=== PATIENT | female | born 1970 | race Caucasian/White ===

== ENCOUNTER 2016-12-04 23:22 | Inpatient (IN) | payer OTHER ==
[~2016-12-04] VITALS: Ht 162.6 cm; Wt 125.5 kg
[~2016-12-04 23:22] MED LIST: AMO500 PO; ATEN50TA PO; BUS5 PO; CIPR500T4 PO; IBUP-1542 PO; LEVO25TA59 PO; METF500T4 PO; NITR-58 PO; UDROBDM PO
[2016-12-04 23:27] VITALS: Ht 162.6 cm; Wt 125.5 kg
[2016-12-04] MEDS ORDERED: SOD CHLORIDE 0.9% 1,000 ML IV STA (23:49)
[2016-12-05] MEDS ORDERED: SOD CHLORIDE 0.9% 1,000 ML IV ONE
[2016-12-05 00:17] LABS: ADD SCAN DIFF NO
[2016-12-05] MEDS ORDERED: DICLOFENAC SODIUM 37.5 MG/ML VIAL IV STA (00:19)
[2016-12-05 00:20] LABS: BASOPHIL # 0.1 10^3/ul (0.0-0.1); BASOPHILS % 0.5 % (0.0-2.0); EOSINOPHILS # 0.4 10^3/ul (0.0-0.5); EOSINOPHILS % 1.9 % (0.0-7.0); HEMATOCRIT 41.2 % (37.0-47.0); HEMOGLOBIN 13.9 g/dl (12.0-16.0); LYMPHOCYTES # 3.4 10^3/ul (0.8-2.9); LYMPHOCYTES % 17.6 % (15.0-51.0); MEAN CORPUSCULAR HEMOGLOBIN 31.2 pg (29.0-33.0); MEAN CORPUSCULAR HGB CONC 33.7 g/dl (32.0-37.0); MEAN CORPUSCULAR VOLUME 92.4 fl (82.0-101.0); MEAN PLATELET VOLUME 9.8 fl (7.4-10.4); MONOCYTE # 1.3 10^3/ul (0.3-0.9); MONOCYTES % 6.9 % (0.0-11.0); NEUTROPHIL # 14.1 10^3/ul (1.6-7.5); NEUTROPHILS % 72.5 % (39.0-77.0); PLATELET COUNT 400 10^3/UL (140-415); RED BLOOD COUNT 4.46 10^6/ul (4.20-5.40); RED CELL DISTRIBUTION WIDTH 12.7 % (11.5-14.5); WHITE BLOOD COUNT 19.5 10^3/ul (4.8-10.8)
[2016-12-05 00:28] LABS: ADD UMIC YES; URINE BILIRUBIN (Dip) NEGATIVE (NEGATIVE); URINE BLOOD (Dip) 1+ (NEGATIVE); URINE COLOR YELLOW (YELLOW); URINE KETONES (Dip) 15 (NEGATIVE); URINE LEUKOCYTE ESTERASE (Dip) NEGATIVE (NEGATIVE); URINE NITRITE (Dip) NEGATIVE (NEGATIVE); URINE TOTAL PROTEIN (Dip) 2+ (NEGATIVE); URINE UROBILINOGEN (Dip) 0.2 E.U./dL (0.1-1.0)
[2016-12-05 00:29] LABS: ALBUMIN 4.4 g/dl (3.3-4.9); POTASSIUM 4.8 mmol/L (3.5-5.1)
[2016-12-05] MEDS ORDERED: HYDROCODONE/APAP (5/325) TAB PO ONE (00:30)
[2016-12-05 00:31] LABS: BILIRUBIN,INDIRECT 0.2 mg/dl (0-1.1); BILIRUBIN,TOTAL 0.2 mg/dl (0.2-1.3); CREATININE 0.68 mg/dl (0.44-1.00)
[2016-12-05 00:32] LABS: ALBUMIN/GLOBULIN RATIO 1.07; CALCIUM 9.5 mg/dl (8.4-10.2); TOTAL PROTEIN 8.5 g/dl (6.1-8.1)
[2016-12-05 00:52] LABS: BACTERIA,URINE FEW; SQUAMOUS EPITHELIAL CELL,UR FEW; URINE RBCS 0-2 /HPF (0)
[2016-12-05] MEDS ORDERED: CEFTRIAXONE 1 GM/50 ML (PMX) 50 ML IVPB ONE (01:30)
[2016-12-05] MEDS ORDERED: VANCOMYCIN 1 GM (PMX) 250 ML IVPB SCH (01:30)
[2016-12-05] MEDS ORDERED: morphine 4 MG/ML VIAL IV STA (02:03)
--- NOTE | 2016-12-05 03:20 | HP ---
Date/Time of Note Date/Time of Note DATE: 12/05/16 TIME: 03:06 Assessment/Plan VTE Prophylaxis VTE Prophylaxis Intervention: other (Lovenox) Assessment/Plan Assessment/Plan 1) Cutaneous Abscess, Multiple, on trunk and extremities with Failure of Outpatient Treatment - Admit to Med Surg - IV Antibiotics, empiric, broad coverage - Pain Control - CBC in AM 2) Hyperglycemia due to type 2 diabetes mellitus uncontrolled - HgbA1c - Diabetes Education - CONSULT: [employer] Apprentice - AccuCheks and Sliding Insulin Scale 3) Hypertension - Resume Home Medications - Monitor 4) Secondary Hypothyroidism - TSH 5) Morbid Obesity - Constant Carb Diet - Work on getting DM under Control - Ensure that Thyroid Hormone is balanced - Treat Boils so that patient feels better - Education and plan for increased daily activity when she is able HPI/ROS Admit Date/Time Admit Date/Time 12/05/16 0307 Hx of Present Illness hief Complaint high blood sugar, also c/o boils, blurry vision HPI 46-year-old female presents with complaint of high blod sugar and multiple painful sores, unsuccessfully treated as an outpatient. Sent here by her PCP because her sugars were found to be high on clinic labs. She has had chills, but no fever. No significant cough or body aches, but generally feeling tired and run-down. Intermittent blurry vision, burning sensation in her feet. Just found out she is a diabetic about a week ago. She denies dysuria, urinary frequency, nausea, vomiting or diarrhea, but her appetite is decreased. No significant abdominal pain, chest pain, shortness of breath. She has been treated with Macrobid,alone for the last few days without relief. ER Course per ER Physician: She was given vancomycin and Rocephin emergency room. No signs of systemic inflammatory response system currently. She was given normal saline for hyperglycemia. She was given morphine and Dilaudid for her pain issue that pain from abscess sites. Early abscess sites on her buttock began bleeding but there was no purulent discharge. She'll be admitted to medical surgical floor for IV antibiotics as well as management of her diabetes and possibly a new diabetic regimen to control her sugars to allow for wound healing. I spoke with Dr. Hewitt will be admitting the patient. ROS General: Admits: Chills, Poor Appetite Denies: Fever, Abnormal Weight Loss, Generalized Body Aches Eyes: Admits: Blurry Vision, Denies: Double Vision, Yellow Eyes HENT: Admits: Denies: Ear Pain/Pressure, Runny/Stuffy Nose, Sore Throat Cardiovascular: Admits: Denies: Chest Pain, Palpitations, Leg Swelling Pulmonary: Admits: Denies: Cough, Wheeze, Shortness of Breath Gastrointestinal: Admits: Denies: Abdominal Pain, Nausea, Vomiting, Diarrhea, Blood in Stool, Black-Colored Stool Urogenital: Admits: Denies: Burning with Urination, Urinary Frequency, Blood in Urine Musculoskeletal: Admits: Denies: Joint Pain, Joint Swelling, Muscle Pain Neurological: Admits: Denies: Headache, Dizziness, Numbness, Tingling, Shooting Pains Integumentary: Admits: Multiple sores Denies: Itch PMH/Family/Social Past Medical History HTN; THRYOID CANCER; Secondary HYPOTHYROIDISN;, DM Type 2; MORBID OBESITY; SLEEP APNEA Past Surgical History THYROIDECTOMY due to Thyroid Cancer; Section x 2 Social History Alcohol Use: sober Smoking Status: Current every day smoker Drug Use: other (Previous daily Methamphetamine user) Exam/Review of Systems Vital Signs Vitals Vital Signs Date Time Temp Pulse Resp B/P Pulse Ox O2 Delivery O2 Flow Rate FiO2 12/05/16 02:47 100 16 109/73 96 Room Air 12/04/16 23:27 99.4 Exam Exam General: Morbidly obese 46 year old female, alert, drowsy, since just received pain medication in the ED, still in some pain. Appears uncomfortable but non- toxic Eyes: Sclera White, EOMI HENT: Normocephalic/Atraumatic, External Ears/Nose Normal, Moist Mucus Membranes Neck: Supple, Trachea Midline Cardiovascular: Normal Rate, Normal Rhythm, Normal S1 and S2, No Murmur, No Extra Sounds Pulmonary: Clear but somewhat decreased airflow throughout, Normal Respiratory Effort, No Rales, Rhonchi or Wheezes Gastrointestinal: Normoactive Bowel Sounds, Soft, Non-Tender/Non-Distended, Morbidly obese, so difficult to palpate internal organs. No obvious organomegaly or pulsatile mass.NUrogenital: Deferred Musculoskeletal: Normal Muscle Bulk and Tone Neurological: CN II - XII Grossly Intact, Non-Focal, Speech Normal Integumentary: Normal Moisture and Temperature, Good Turgor, No Jaundice. Patient has multiple areas of cellulitis an indurated abscess on buttock, lower abdomen, left lateral chest wall. No other lesions have any fluctuance. Wheals are all approximately 3-4 cm with positive warmth and erythema. There very tender to palpation. Lymphatic: No Cervical Lymphadenopathy Psychiatric: Appropriate Mood and Affect, Good Eye Contact Labs Result Diagram: 12/04/16 0000 12/04/16 0000 Medications Medications Home Meds Active Scripts Ciprofloxacin Hcl* (Ciprofloxacin Hcl*) 500 Mg Tablet, 500 MG PO BID for 5 Days , TAB Prov:LINDALEONARDNEGIN 02/26/16 Guaifenesin-Dextromethorphan* (Robitussin* DM) 100MG/10MG/5ML Syrup, 5 ML PO Q6H Y for COUGH, #120 ML 0 Refills Prov:KATHY COOK PA-C 12/28/15 Amoxicillin* (Amoxicillin*) 500 Mg Cap, 500 MG PO TID, #21 CAP 0 Refills Prov:KATHY COOK PA-C 12/28/15 Ibuprofen* (Motrin*) 600 Mg Tab, 600 MG PO Q8, #30 TAB 0 Refills Prov:KATHY COOK PA-C 12/28/15 Nitrofurantoin Monohyd Macrocr* (Macrobid*) 100 Mg Capsr, 100 MG PO BID, #14 CAP 0 Refills Prov:KATHY COOK PA-C 12/28/15 Reported Medications Levothyroxine Sodium* (Synthroid*) 25 Mcg Tablet, 25 MCG PO DAILY, TAB 02/03/15 Metformin* (Glucophage*) 500 Mg Tab, 1000 MG PO BID, TAB 02/03/15 Buspirone Hcl* (Buspar*) 5 Mg Tab, 5 MG PO BID, TAB 02/03/15 Atenolol* (Atenolol*) 50 Mg Tablet, 50 MG PO DAILY, TAB 02/03/15 Procedures Procedures Laboratory Tests Test 12/04/16 00:00 12/04/16 23:34 12/05/16 00:01 12/05/16 07:22 White Blood Count 19.510^3/ul Red Blood Count 4.4610^6/ul Hemoglobin 13.9g/dl Hematocrit 41.2% Mean Corpuscular Volume 92.4fl Mean Corpuscular Hemoglobin 31.2pg Mean Corpuscular Hemoglobin Concent 33.7g/dl Red Cell Distribution Width 12.7% Platelet Count 96208^3/UL Mean Platelet Volume 9.8fl Neutrophils % 72.5% Lymphocytes % 17.6% Monocytes % 6.9% Eosinophils % 1.9% Basophils % 0.5% Nucleated Red Blood Cells % 0.0/100WBC Neutrophils # 14.110^3/ul Lymphocytes # 3.410^3/ul Monocytes # 1.310^3/ul Eosinophils # 0.410^3/ul Basophils # 0.110^3/ul Nucleated Red Blood Cells # 0.010^3/ul Urine Color YELLOW Urine Clarity CLEAR Urine pH 6.0 Urine Specific [place] 1.025 Urine Ketones 15 Urine Nitrite NEGATIVE Urine Bilirubin NEGATIVE Urine Urobilinogen 0.2 E.U./dL Urine Leukocyte Esterase NEGATIVE Urine Microscopic RBC 0-2/HPF Urine Microscopic WBC 2-5/HPF Urine Squamous Epithelial Cells FEW Urine Bacteria FEW Urine Yeast FEW Urine Hemoglobin 1+ Urine Glucose 0.5%% Urine Total Protein 2+ Sodium Level 132mmol/L Potassium Level 4.8mmol/L Chloride Level 90mmol/L Carbon Dioxide Level 31mmol/L Anion Gap 16 Blood Urea Nitrogen 13mg/dl Creatinine 0.68mg/dl Glucose Level 383mg/dl Calcium Level 9.5mg/dl Total Bilirubin 0.2mg/dl Direct Bilirubin 0.00mg/dl Indirect Bilirubin 0.2mg/dl Aspartate Amino Transf (AST/SGOT) 89IU/L Alanine Aminotransferase (ALT/SGPT) 106IU/L Alkaline Phosphatase 238IU/L Total Protein 8.5g/dl Albumin 4.4g/dl Globulin 4.10g/dl Albumin/Globulin Ratio 1.07 Lipase 226U/L Bedside Glucose 355mg/dL 297mg/dL Thyroid Stimulating Hormone (TSH) 61.300MIU/L BRUCE HEWITT Dec 05, 2016 03:16 BRUCE HEWITT DO Dec 05, 2016 03:16
[2016-12-05] MEDS ORDERED: VANCOMYCIN IV PER PHARMACY XX SCH (03:30)
[2016-12-05] MEDS ORDERED: GLUCOSE GEL 15 GRAM TUBE BUCCAL PRN (03:30)
[2016-12-05] MEDS ORDERED: HYDROCODONE/APAP (5/325) TAB PO PRN ×3 (03:30→10:30)
[2016-12-05] MEDS ORDERED: NACL 0.9% 3 ML SYG IV SCH (03:30)
[2016-12-05] MEDS ORDERED: DEXTROSE 50% 50 ML SYRINGE IV PRN ×2 (03:30)
[2016-12-05] MEDS ORDERED: ACETAMINOPHEN 325 MG TAB PO PRN (03:30)
[2016-12-05] MEDS ORDERED: METOCLOPRAMIDE 10 MG INJ IV PRN (03:30)
[2016-12-05] MEDS ORDERED: GLUCAGON 1 MG INJ IM PRN (03:30)
[2016-12-05] MEDS ORDERED: ONDANSETRON 4 MG TAB PO PRN (03:30)
[2016-12-05] MEDS ORDERED: GLUCOSE GEL 15 GRAM TUBE PO PRN ×2 (03:30)
[2016-12-05] MEDS ORDERED: LEVOTHYROXINE 100 MCG TAB PO SCH (05:30)
[2016-12-05] MEDS ORDERED: morphine 10 MG INJ IV ONE (07:00)
--- NOTE | 2016-12-05 07:40 | ERA ---
ER Documentation Chief Complaint Date/Time DATE: 12/05/16 TIME: 07:34 Chief Complaint high blood sugar, also c/o boils, blurry vision HPI 46-year-old female minutes of hyperglycemia and multiple red lesions on her body. She has mild blurry vision currently with hyperglycemia. She knew she had diabetes and her sugars were formally well controlled with metformin alone. She had a sugar 500 at home and her primary care doctor told her to come the emergency room. She's had chills with no fevers and has pain on the lesion sites only. She denies dysuria, significant abdominal pain, chest pain, shortness of breath. She has been treated with Macrobid as normal for the last few days without relief. ROS All systems reviewed and are negative except as per history of present illness. Medications Home Meds Active Scripts Ciprofloxacin Hcl* (Ciprofloxacin Hcl*) 500 Mg Tablet, 500 MG PO BID for 5 Days , TAB Prov:NEGIN MCKEON DO 02/26/16 Guaifenesin-Dextromethorphan* (Robitussin* DM) 100MG/10MG/5ML Syrup, 5 ML PO Q6H Y for COUGH, #120 ML 0 Refills Prov:KATHY COOK PA-C 12/28/15 Amoxicillin* (Amoxicillin*) 500 Mg Cap, 500 MG PO TID, #21 CAP 0 Refills Prov:KATHY COOK PA-C 12/28/15 Ibuprofen* (Motrin*) 600 Mg Tab, 600 MG PO Q8, #30 TAB 0 Refills Prov:KATHY COOK PA-C 12/28/15 Nitrofurantoin Monohyd Macrocr* (Macrobid*) 100 Mg Capsr, 100 MG PO BID, #14 CAP 0 Refills Prov:KATHY COOK PA-C 12/28/15 Reported Medications Levothyroxine Sodium* (Synthroid*) 25 Mcg Tablet, 25 MCG PO DAILY, TAB 02/03/15 Metformin* (Glucophage*) 500 Mg Tab, 1000 MG PO BID, TAB 02/03/15 Buspirone Hcl* (Buspar*) 5 Mg Tab, 5 MG PO BID, TAB 02/03/15 Atenolol* (Atenolol*) 50 Mg Tablet, 50 MG PO DAILY, TAB 02/03/15 Allergies Allergies: Coded Allergies: No Known Allergy (Verified , 12/04/16) PMhx/Soc History of Surgery: Yes (THYROIDECTOMY, 2x ) Anesthesia Reaction: No Hx Neurological Disorder: No Hx Respiratory Disorders: No Hx Cardiac Disorders: Yes (c/o cp, HTN) Hx Psychiatric Problems: Yes (DEPRESSION) Hx Miscellaneous Medical Probl: Yes (THRYOID CANCER, DM, OBESITY, SLEEP APNEA) Hx Alcohol Use: Yes (previous daily ) Hx Substance Use: Yes (previous METH DAILY) Hx Tobacco Use: Yes Smoking Status: Current every day smoker Physical Exam Vitals Vital Signs Date Time Temp Pulse Resp B/P Pulse Ox O2 Delivery O2 Flow Rate FiO2 12/05/16 07:25 89 20 138/80 99 Room Air 12/05/16 06:05 90 18 149/95 99 Room Air 12/05/16 04:32 94 18 136/83 98 12/05/16 02:47 100 16 109/73 96 Room Air 12/05/16 00:14 98 16 151/87 99 Room Air 12/04/16 23:27 99.4 82 20 169/99 98 Physical Exam Const: [] No distress Head: Atraumatic Eyes: Normal Conjunctiva ENT: Normal External Ears, Nose and Mouth. Neck: Full range of motion..~ No meningismus. Resp: Clear to auscultation bilaterally Cardio: Regular rate and rhythm, no murmurs Abd: Soft, non tender, non distended. Normal bowel sounds Skin: Patient has multiple areas of cellulitis an indurated abscess on buttock, lower abdomen, left lateral chest wall. No other lesions have any fluctuance. Wheezes are all approximately 3-4 cm with positive calor and erythema. There very tender to palpation. Back: No midline or flank tenderness Ext: No cyanosis, or edema Neur: Awake and alert 3, no focal deficits Psych: Normal Mood and Affect Result Diagram: 12/04/16 0000 12/04/16 0000 Results 24 hrs Laboratory Tests Test 12/04/16 00:00 12/04/16 23:34 12/05/16 00:01 12/05/16 07:22 White Blood Count 19.510^3/ul Red Blood Count 4.4610^6/ul Hemoglobin 13.9g/dl Hematocrit 41.2% Mean Corpuscular Volume 92.4fl Mean Corpuscular Hemoglobin 31.2pg Mean Corpuscular Hemoglobin Concent 33.7g/dl Red Cell Distribution Width 12.7% Platelet Count 04328^3/UL Mean Platelet Volume 9.8fl Neutrophils % 72.5% Lymphocytes % 17.6% Monocytes % 6.9% Eosinophils % 1.9% Basophils % 0.5% Nucleated Red Blood Cells % 0.0/100WBC Neutrophils # 14.110^3/ul Lymphocytes # 3.410^3/ul Monocytes # 1.310^3/ul Eosinophils # 0.410^3/ul Basophils # 0.110^3/ul Nucleated Red Blood Cells # 0.010^3/ul Urine Color YELLOW Urine Clarity CLEAR Urine pH 6.0 Urine Specific [place] 1.025 Urine Ketones 15 Urine Nitrite NEGATIVE Urine Bilirubin NEGATIVE Urine Urobilinogen 0.2 E.U./dL Urine Leukocyte Esterase NEGATIVE Urine Microscopic RBC 0-2/HPF Urine Microscopic WBC 2-5/HPF Urine Squamous Epithelial Cells FEW Urine Bacteria FEW Urine Yeast FEW Urine Hemoglobin 1+ Urine Glucose 0.5%% Urine Total Protein 2+ Sodium Level 132mmol/L Potassium Level 4.8mmol/L Chloride Level 90mmol/L Carbon Dioxide Level 31mmol/L Anion Gap 16 Blood Urea Nitrogen 13mg/dl Creatinine 0.68mg/dl Glucose Level 383mg/dl Calcium Level 9.5mg/dl Total Bilirubin 0.2mg/dl Direct Bilirubin 0.00mg/dl Indirect Bilirubin 0.2mg/dl Aspartate Amino Transf (AST/SGOT) 89IU/L Alanine Aminotransferase (ALT/SGPT) 106IU/L Alkaline Phosphatase 238IU/L Total Protein 8.5g/dl Albumin 4.4g/dl Globulin 4.10g/dl Albumin/Globulin Ratio 1.07 Lipase 226U/L Bedside Glucose 355mg/dL 297mg/dL Thyroid Stimulating Hormone (TSH) 61.300MIU/L Current Medications Medications (Trade) Dose Ordered Sig/Omar Route PRN Reason Start Time Stop Time Status Last Admin Dose Admin Sodium Chloride 1,000 ml @ 1,000 mls/hr Q1H STAT IV 12/04/16 23:49 12/05/16 00:48 DC 12/05/16 00:28 Sodium Chloride (NS) 1,000 ml @ 1,000 mls/hr Q1H ONCE IV 12/05/16 00:00 12/05/16 00:59 DC 12/05/16 00:28 Diclofenac Sodium (Dyloject) 37.5 mg ONCE STAT IV 12/05/16 00:19 12/05/16 00:21 DC 12/05/16 00:28 Acetaminophen/ Hydrocodone Bitart 1 tab 1 tab ONCE ONCE PO 12/05/16 00:30 12/05/16 00:31 DC 12/05/16 00:29 Vancomycin HCl 250 ml @ 125 mls/hr ONCE IVPB 12/05/16 01:30 12/05/16 03:29 DC 12/05/16 02:47 Ceftriaxone Sodium (Rocephin) 50 ml @ 100 mls/hr ONCE ONCE IVPB 12/05/16 01:30 12/05/16 01:59 DC 12/05/16 01:57 Morphine Sulfate (morphine) 4 mg ONCE STAT IV 12/05/16 02:03 12/05/16 02:08 DC 12/05/16 02:12 IV Flush (NS 3 ml) 3 ml PER PROTOCOL IV 12/05/16 03:30 Ondansetron HCl (Zofran Tab) 4 mg Q6H PRN PO NAUSEA AND/OR VOMITING 12/05/16 03:30 Metoclopramide HCl (Reglan) 10 mg Q6H PRN IV NAUSEA AND/OR VOMITING 12/05/16 03:30 Acetaminophen (Tylenol Tab) 650 mg Q6H PRN PO PAIN LEVEL 1-3 OR FEVER 12/05/16 03:30 Acetaminophen/ Hydrocodone Bitart ([place] (5/325)) 1 tab Q6H PRN PO MODERATE PAIN LEVEL 4-6 12/05/16 03:30 Acetaminophen/ Hydrocodone Bitart ([place] (5/325)) 2 tab Q6H PRN PO SEVERE PAIN LEVEL 7-10 12/05/16 03:30 Famotidine (Pepcid) 20 mg Q12 PO 12/05/16 09:00 Enoxaparin Sodium (Lovenox) 40 mg DAILY SC 12/05/16 09:00 Insulin Aspart (Novolog Insulin Pen) NOVOLOG *MILD* ALGORITHM WITH MEALS BEDTIME SC 12/05/16 08:00 Insulin Glargine (Lantus) 10 unit DAILY@08 SC 12/05/16 08:00 Miscellaneous Information (* Miscellaneous Pharmacy Order) HYPOGLYCEMIA PROTOCOL w... ONCE ONCE XX 12/05/16 03:30 12/05/16 03:34 DC Miscellaneous Information (* Miscellaneous Pharmacy Order) Discontinue Glyburide, Glipizide,... ONCE ONCE XX 12/05/16 03:30 12/05/16 03:34 DC Miscellaneous Information (* Miscellaneous Pharmacy Order) Discontinue all previ... ONCE ONCE XX 12/05/16 03:30 12/05/16 03:34 DC Atenolol (Tenormin) 50 mg DAILY PO 12/05/16 09:00 Buspirone HCl (Buspar) 5 mg BID PO 12/05/16 09:00 Levothyroxine Sodium (Synthroid) 25 mcg DAILY PO 12/05/16 09:00 12/05/16 09:00 DC Metformin HCl (Glucophage) 1,000 mg WITH BREAKFAST DINNE PO 12/05/16 08:00 Vancomycin HCl VANCOMYCIN PER PHARMACY PER PROTOCOL XX 12/05/16 03:30 Ceftriaxone Sodium (Rocephin) 50 ml @ 100 mls/hr DAILY IVPB 12/05/16 09:00 Diagnostic Test (Pha) (Accu-Chek) 1 ea 02 XX 12/06/16 02:00 Miscellaneous Information 1 ea NOTE XX 12/05/16 03:30 Glucose (Glutose) 15 gm Q15M PRN PO DECREASED GLUCOSE 12/05/16 03:30 Glucose (Glutose) 22.5 gm Q15M PRN PO DECREASED GLUCOSE 12/05/16 03:30 Dextrose (D50w Syringe) 25 ml Q15M PRN IV DECREASED GLUCOSE 12/05/16 03:30 Dextrose (D50w Syringe) 50 ml Q15M PRN IV DECREASED GLUCOSE 12/05/16 03:30 Glucagon (Glucagen) 1 mg Q15M PRN IM DECREASED GLUCOSE 12/05/16 03:30 Glucose 15 gm 15 gm Q15M PRN BUCCAL DECREASED GLUCOSE 12/05/16 03:30 Vancomycin HCl/ Sodium Chloride (Vancocin/NS) 500 ml @ 125 mls/hr Q12H IVPB 12/05/16 09:00 Levothyroxine Sodium (Synthroid) 100 mcg DAILY@0530 PO 12/05/16 05:30 Morphine Sulfate (morphine) 6 mg ONCE ONCE IV 12/05/16 07:00 12/05/16 07:01 DC Procedures/MDM Patient's fracture hyperglycemia with metformin is likely secondary to her section from multiple nonfluctuant abscesses. She has failed outpatient treatment. She was given vancomycin and Rocephin emergency room. No signs of systemic inflammatory response system currently. She was given normal saline for hyperglycemia. She was given morphine and Dilaudid for her pain issue that pain from abscess sites. Early abscess sites on her buttock began bleeding but there was no purulent discharge. She'll be admitted to medical surgical floor for IV antibiotics as well as management of her diabetes and possibly a new diabetic regimen to control her sugars to allow for wound healing. I spoke with Dr. Aquino will be admitting the patient. Departure Diagnosis: Primary Impression: Cutaneous abscess Additional Impressions: Failure of outpatient treatment Hyperglycemia due to type 2 diabetes mellitus Condition: NEHAL Li DO Dec 05, 2016 07:40
[2016-12-05] MEDS ORDERED: INSULIN GLARGINE [LANtus] 3 ML PEN SC SCH ×2 (08:00→21:00)
[2016-12-05] MEDS ORDERED: FAMOTIDINE 20 MG TAB PO SCH (09:00)
[2016-12-05] MEDS ORDERED: ATENOLOL 50 MG TAB PO SCH (09:00)
[2016-12-05] MEDS ORDERED: ENOXAPARIN 40 MG/0.4 ML SYG SC SCH (09:00)
[2016-12-05] MEDS ORDERED: BUSPIRONE 5 MG TAB PO SCH (09:00)
[2016-12-05] MEDS ORDERED: CEFTRIAXONE 1 GM/50 ML (PMX) 50 ML IVPB SCH (09:00)
[2016-12-05] MEDS ORDERED: VANCOMYCIN 1.75 GM in NS 500 ML IVPB SCH (09:00)
[2016-12-05] MEDS ORDERED: LEVOTHYROXINE 25 MCG TAB PO SCH (09:00)
[2016-12-05] MEDS: metFORMIN 500 MG TAB PO SCH ×2 (09:15→18:19)
[2016-12-05 10:00] VITALS: BP 135/75; PULSE 78; RESP 18
[2016-12-05] MEDS: INSULIN ASPART [NOVOLOG] 3 ML PEN SC SCH ×2 (10:18→12:38)
[2016-12-05 10:27] LABS: HAAIG REFLEX REFLEX FILED
[2016-12-05] MEDS: morphine 2 MG INJ IV PRN ×2 (10:45→14:22)
[2016-12-05 12:06] LABS: HEPATITIS B CORE ANTIBODY NEGATIVE (NEGATIVE)
--- NOTE | 2016-12-05 16:40 | PN ---
Date/Time of Note Date/Time of Note DATE: 12/05/16 TIME: 16:37 Assessment/Plan VTE Prophylaxis VTE Prophylaxis Intervention: LMWH Assessment/Plan Chief Complaint/Hosp Course Subjective: Painful boils. No dyspnea. Objective: Vital signs stable Physical examination No pallor JVD Regular Clear Bowel sounds positive, nontender, nondistended, no RR G Assessment and plan 1. Hyperosmolar hyperglycemic state. No evidence of DKA. Stable cont insulin. Insulin training 2. Cellulitis, possible multiple small abscess. Try antibiotics and diabetic care. May need surgical eval. 3. Hypothyroidism/ho thyroid Ca. Adjust therapy 4. History of substance abuse- meth 5. Tobacco abuse; patch prn 6. Possible sleep apnea Problems: Exam/Review of Systems Vital Signs Vitals Vital Signs Date Time Temp Pulse Resp B/P Pulse Ox O2 Delivery O2 Flow Rate FiO2 12/05/16 07:25 89 20 138/80 99 Room Air 12/04/16 23:27 99.4 Results Result Diagram: 12/04/16 0000 12/04/16 0000 Results 24 hrs Laboratory Tests Test 12/04/16 23:34 12/05/16 00:01 12/05/16 07:22 12/05/16 08:46 Bedside Glucose 355 H 297 H 334 H Thyroid Stimulating Hormone (TSH) 61.300 H Test 12/05/16 10:16 12/05/16 12:27 Hepatitis B Surface Antigen NEGATIVE Hepatitis B Core Total Antibody NEGATIVE Hepatitis C Antibody NEGATIVE HIV (1&2) Antibody NEGATIVE Bedside Glucose 378 H Medications Medications Current Medications Ondansetron HCl (Zofran Tab) 4 mg Q6H PRN PO NAUSEA AND/OR VOMITING; Start at 03:30 Metoclopramide HCl (Reglan) 10 mg Q6H PRN IV NAUSEA AND/OR VOMITING; Start at 03:30 Acetaminophen (Tylenol Tab) 650 mg Q6H PRN PO PAIN LEVEL 1-3 OR FEVER; Start at 03:30 Acetaminophen/ Hydrocodone Bitart ([place] (5/325)) 1 tab Q6H PRN PO MODERATE PAIN LEVEL 4-6; Start 12/05/16 at 03:30 Acetaminophen/ Hydrocodone Bitart ([place] (5/325)) 2 tab Q6H PRN PO SEVERE PAIN LEVEL 7-10; Start 12/05/16 at 03:30 Famotidine (Pepcid) 20 mg Q12 PO Last administered on 12/05/16 09:56; Admin Dose 20 MG; Start 12/05/16 at 09:00 Enoxaparin Sodium (Lovenox) 40 mg DAILY SC Last administered on 12/05/16 10:04 ; Admin Dose 40 MG; Start 12/05/16 at 09:00 Insulin Glargine (Lantus) 10 unit DAILY@08 SC Last administered on 12/05/16 10 :15; Admin Dose 10 UNIT; Start 12/05/16 at 08:00 Atenolol (Tenormin) 50 mg DAILY PO Last administered on 12/05/16 09:56; Admin Dose 50 MG; Start 12/05/16 at 09:00 Buspirone HCl 5 mg 5 mg BID PO ; Start 12/05/16 at 09:00 Ceftriaxone Sodium (Rocephin) 50 ml @ 100 mls/hr DAILY IVPB Last administered on 12/05/16 09:56; Admin Dose 100 MLS/HR; Start 12/05/16 at 09:00 Diagnostic Test (Pha) (Accu-Chek) 1 ea 02 XX ; Start 12/06/16 at 02:00 Miscellaneous Information 1 ea NOTE XX ; Start 12/05/16 at 03:30 Glucose (Glutose) 15 gm Q15M PRN PO DECREASED GLUCOSE; Start 12/05/16 at 03:30 Glucose (Glutose) 22.5 gm Q15M PRN PO DECREASED GLUCOSE; Start 12/05/16 at 03: 30 Dextrose (D50w Syringe) 25 ml Q15M PRN IV DECREASED GLUCOSE; Start 12/05/16 at 03:30 Dextrose (D50w Syringe) 50 ml Q15M PRN IV DECREASED GLUCOSE; Start 12/05/16 at 03:30 Glucagon (Glucagen) 1 mg Q15M PRN IM DECREASED GLUCOSE; Start 12/05/16 at 03:30 Glucose 15 gm 15 gm Q15M PRN BUCCAL DECREASED GLUCOSE; Start 12/05/16 at 03:30 Vancomycin HCl/ Sodium Chloride (Vancocin/NS) 500 ml @ 125 mls/hr Q12H IVPB Last administered on 12/05/16 12:13; Admin Dose 125 MLS/HR; Start 12/05/16 at 09:00 Levothyroxine Sodium (Synthroid) 100 mcg DAILY@0530 PO Last administered on 12:10; Admin Dose 100 MCG; Start 12/05/16 at 05:30 Morphine Sulfate (morphine) 2 mg Q3H PRN IV PAIN LEVEL 6-10 Last administered on 12/05/16 14:22; Admin Dose 2 MG; Start 12/05/16 at 10:30 Acetaminophen/ Hydrocodone Bitart ([place] (5/325)) 1 tab Q4H PRN PO PAIN LEVEL 1 -5; Start 12/05/16 at 10:30 LORENA MORELAND MD Dec 05, 2016 16:40
[2016-12-05] MEDS ORDERED: SOD CHLORIDE 0.9% 1,000 ML IV SCH (17:00)
[2016-12-05] MEDS ORDERED: morphine 2 MG INJ IV PRN (17:00)
[2016-12-05] MEDS ORDERED: HYDROCODONE/APAP (10/325) TAB PO PRN (17:00)
[2016-12-05] MEDS ORDERED: INSULIN ASPART [NOVOLOG] 3 ML PEN SC SCH ×2 (17:25→17:55)
[2016-12-06] MEDS ORDERED: ACCU-CHEK XX SCH (02:00)
[2016-12-06] MEDS ORDERED: ACCUCHECK AT 2AM (Patients on SS coverage) XX SCH (02:00)
== END 2016-12-05 20:10 | disposition left against medical advice (07) | DRG 602 ==
LOC: E/R 23:22 → MS1 12-05 03:07
PROVIDERS: ADMIT Family Medicine; ATTEND Family Medicine
DX: L02.219 Cutaneous abscess of trunk, unspecified (principal); E11.00 Type 2 diabetes mellitus with hyperosmolarity without nonketotic hyperglycemic-hyperosmolar coma (NKHHC); L02.419 Cutaneous abscess of limb, unspecified; Z68.42 Body mass index [BMI] 45.0-49.9, adult; E11.65 Type 2 diabetes mellitus with hyperglycemia; I10 Essential (primary) hypertension; E03.8 Other specified hypothyroidism; E66.01 Morbid (severe) obesity due to excess calories; F17.210 Nicotine dependence, cigarettes, uncomplicated; G47.33 Obstructive sleep apnea (adult) (pediatric); Z79.4 Long term (current) use of insulin
CPT/HCPCS: 36415; 80053; 81001; 81003; 82962; 83690; 84443; 85025; 86703; 86704; 86709; 86803; 87040; 87086; 87340; 96374; 96375; J0696; J1650; J1815; J2270; J3370; J7030; J7040

== ENCOUNTER 2016-12-10 14:29 | Outpatient (CLI) | payer OTHER ==
[~2016-12-10] VITALS: Ht 162.6 cm; Wt 124.1 kg
[2016-12-10 14:45] VITALS: BP_SYST 172; BP_SYST 203; BP_DIAS 100; BP_DIAS 108; PULSE 94; RESP 20; Ht 162.6 cm; Wt 124.1 kg
[2016-12-10] MEDS ORDERED: ARIP20TA7 PO (15:18)
[2016-12-10] MEDS ORDERED: SERT50TA PO (15:18)
[2016-12-10] MEDS ORDERED: SERT100T PO (15:18)
[2016-12-10] MEDS ORDERED: LEVO175T6 PO (15:18)
--- NOTE | 2016-12-10 15:40 | PN ---
Date/Time of Note Date/Time of Note DATE: 12/10/16 TIME: 15:30 Outpatient Progress Note Chief Complaint Diabetes/hypertension/diabetic neuropathy/hypothyroidism/depression/ hyperlipidemia/ HPI Diabetes/patient was recently diagnosed diabetes, patient blood sugar was significantly elevated, patient blood sugar was 500, 2 days patient blood sugar is 338, patient is not following any diet, patient states that patient was not given any diet instruction, or any paperwork, No patient has polydipsia and polyuria, and also has impaired vision, on about the sites, Hypertension/no headache or dizziness, patient blood pressure significantly elevated, no local focal weakness, Diabetic neuropathy/patient has bilateral feet numbness, and discomfort, going on for a year, Hypothyroidism/patient has hypothyroidism, patient had a cancer of the thyroid, patient has thyroidectomy, patient on supplement, Depression/patient has history of depression, patient on multiple medication, patient has gained 70 pounds in last 1 year, Hyperlipidemia/no xanthoma, on medication, side effect, Review of Systems Const: No Fever, no chills, no Wt. loss patient has severe fatigue, normal appetite, no diaphoresis. Eyes: No pain, no discharge, no redness, impaired vision in both eyes,, no foreign body. ENT: No pain, no bleeding, no congestion, no sore throat, no dysphagia, no discharge or rhinitis. Lymph: No adenopathy, no tender nodes, no lymphedema. Resp: No SOB, no cough, no sputum, no wheezing, no chest pain. CV: No chest pain, no palpitaions, no JACOBSON, no PND, no edema. GI: Normal appetite, no pain, no nausea, no vomiting, no diarrhea, no blood, no constipation. : No frequency, no urgency, no dysuria, no hematuria, no flank pain, no discharge, no bleeding. Musc: No bone/joint pain, no back pain, no neck pain, no knee pain, no restricted ROM. Skin: No rash, no skin lesions, no erythema, no laceration, no bruising, no pruritus. Neuro: No LINTON, no dizziness, no syncope, no seizure, no focal-weakness. Patient has numbness in both feet, Endo: No polyuria, no polydypsia, no dry-skin, no temp-intolerance. Psych: No hallucinations, no depression, no anxiety, no suicidal ideation. Ext: No edema, no pain, no ulcer, no weakness. Physical Exam Vital Signs Date Time Temp Pulse Resp B/P Pulse Ox O2 Delivery O2 Flow Rate FiO2 12/10/16 14:45 98.3 94 20 203/100 97 Room Air 172/108 General Appearance: A 46year-old G female who appears well-developed, well- nourished, in no acute distress. HEENT: Head normocephalic, atraumatic. Pupils equal, round, reactive to light and accommodate. Sclerae are no jaundice. Nasal turbinates pink without erythema or nasal discharge. Mucous membranes pink and moist without lesions. Oropharynx clear without any exudate or discharge. NECK: Supple. Trachea midline, No thyromegaly, No cervical lymphadenopathy, No mass, No carotid bruits, No JVD, Carotid pulses 2+ bilaterally. PULMONARY: Clear to auscultaion bilaterally, No retractions, Chest expansion symmetric bilaterally, no rales, no ronchi, no dulness on percussion. CARDIAC: Normal SI and S2, Regular rate and rythm, no murmur, gallop, or rub. GASTROINTESTINAL: Abdomen is soft, non-tender, Non Rigid, No distention, Positive bowel sounds x4 quadrants, Liver normal. SKIN: Warm, dry, no rash, no bruise, no echmosis. Patient has small abscesses in the past, improved significantly, EXTREMITIES: Bilateral lower extremities normal, no edema, no phlabitus, pulse palpable, no contracture. MUSCULOSKELETAL: Spine Normal, Non-tender, Normal range of motion, No swelling, no deformity, no clubbing, or cyanosis, the patient has no edema to bilateral lower extremities, dorsalis pedis pulses palpable bilaterally. NEUROLOGIC: The patient is awake, alert, oriented, responding to yes/no questions appropriately, moving all extremities, cranial nerve intact, normal strenght, normal power, normal coordination, normal gait. Allergies Coded Allergies: No Known Allergy (Verified , 12/04/16) PMH Diabetes/hypertension/diabetic neuropathy/hypothyroidism/depression/ hyperlipidemia section and tubal ligation, Social Hx Patient still smokes, smoking cessation discussed, no drinking, no drugs, Family Hx Noncontributory Assessment/Plan Impression Diabetes poor control/hypertension poor control/diabetic neuropathy/ hypothyroidism/depression/hyperlipidemia Plan Patient education done about diabetes, and hypertension, and neuropathy, risk explained, patient may end up with CVA, heart attack, renal failure,hemodialysis , gangrene, blindness, MD, and sudden , Diabetic education done, hypoglycemia Patient has been educated about all the above diseases, Patient encouraged to follow with the primary care physician, Patient was started on 500 mg Glucophage, now increased to thousand milligrams, blood sugar is still about 338, Will start glyburide 10 mg daily and explained to the patient, watch for hypoglycemia, control the diet, increase exercise, if the blood sugar is not controlled may help to increase the dose, and patient may end up with insulin, will give her try with oral medication, Patient blood pressure also significantly elevated, patient is taking benazepril 5 mg daily, will increase benazepril to 20 mg daily, patient advised to buy a blood pressure machine, and check the blood pressure on regular basis, Patient to take blood sugar and blood pressure record to the primary care physician, Patient very very high risk for repeated admission and complication, explained to the patient and the family, Discontinue and discuss to stop smoking risk of smoking diabetes hypertension leading to very high, patient aware of it, family aware of it, give diet paper 1200 1500 michael, patient will be seen within few days, to see if blood pressure is uncontrolled and her blood sugar is under control, Medications Home Meds Active Scripts Ibuprofen* (Motrin*) 600 Mg Tab, 600 MG PO Q8, #30 TAB 0 Refills Prov:KATHY COOK PA-C 12/28/15 Reported Medications Sertraline Hcl* (Zoloft*) 100 Mg Tablet, 100 MG PO DAILY, #30 TAB 12/10/16 Sertraline Hcl* (Zoloft*) 50 Mg Tablet, 50 MG PO DAILY, #30 TAB 12/10/16 Levothyroxine Sodium* (Levothyroxine Sodium*) 175 Mcg Tablet, 175 MCG PO BEFORE BREAKFAST, #30 TAB 12/10/16 Aripiprazole* (Abilify*) 20 Mg Tablet, 20 MG PO DAILY, #30 TAB 12/10/16 Metformin* (Glucophage*) 500 Mg Tab, 1000 MG PO BID, TAB 02/03/15 Buspirone Hcl* (Buspar*) 5 Mg Tab, 5 MG PO BID, TAB 02/03/15 Atenolol* (Atenolol*) 50 Mg Tablet, 50 MG PO DAILY, TAB 02/03/15 Discontinued Reported Medications Levothyroxine Sodium* (Synthroid*) 25 Mcg Tablet, 25 MCG PO DAILY, TAB 02/03/15 Discontinued Scripts Ciprofloxacin Hcl* (Ciprofloxacin Hcl*) 500 Mg Tablet, 500 MG PO BID for 5 Days , TAB Prov:NEGIN MCKEON 02/26/16 Guaifenesin-Dextromethorphan* (Robitussin* DM) 100MG/10MG/5ML Syrup, 5 ML PO Q6H Y for COUGH, #120 ML 0 Refills Prov:KATHY COOK PA-C 12/28/15 Amoxicillin* (Amoxicillin*) 500 Mg Cap, 500 MG PO TID, #21 CAP 0 Refills Prov:KATHY COOK PA-C 12/28/15 Nitrofurantoin Monohyd Macrocr* (Macrobid*) 100 Mg Capsr, 100 MG PO BID, #14 CAP 0 Refills Prov:KATHY COOK PA-C 12/28/15 FIDELINA RODRIGUEZ MD Dec 10, 2016 15:39
== END 2016-12-10 16:36 | disposition home or self-care (01) ==
LOC: DCC 14:29
PROVIDERS: ATTEND Internal Medicine
DX: E11.65 Type 2 diabetes mellitus with hyperglycemia (principal); E11.40 Type 2 diabetes mellitus with diabetic neuropathy, unspecified; E03.9 Hypothyroidism, unspecified; E78.5 Hyperlipidemia, unspecified; F32.9 Major depressive disorder, single episode, unspecified
CPT/HCPCS: 82962; G0463

== ENCOUNTER 2016-12-17 11:21 | Outpatient (CLI) | payer OTHER ==
[~2016-12-17] VITALS: Ht 162.6 cm; Wt 121.4 kg
[~2016-12-17 11:21] MED LIST changes: -AMO500 PO; +ARIP20TA7 PO; -CIPR500T4 PO; +LEVO175T6 PO; -LEVO25TA59 PO; -NITR-58 PO; +SERT100T PO; +SERT50TA PO; -UDROBDM PO
[2016-12-17 11:33] VITALS: BP 187/105; PULSE 102; RESP 20; Ht 162.6 cm; Wt 121.4 kg
--- NOTE | 2016-12-17 12:28 | PN ---
Date/Time of Note Date/Time of Note DATE: 12/17/16 TIME: 12:16 Outpatient Progress Note Chief Complaint Hypertension/diabetes poor control/diabetic neuropathy/hypothyroidism/ hyperlipidemia HPI Hypertension/no headache or dizziness, no lightheadedness, patient has been taking blood pressure medication regular basis, patient blood pressure 187/105 , no impaired vision, no blood in the urine, Diabetes/patient denies any polydipsia poly-hypoglycemia, gastroparesis, patient was given instruction with her diet, patient still eating in between meals, and a lot of fruits, Diabetic neuropathy/patient has diabetic neuropathy, no improvement yet, Hypothyroidism/no constipation, no puffiness of eyes, medication, Hyperlipidemia/no xanthoma, on medication, side effect, Review of Systems Const: No Fever, no chills, no Wt. loss, no Fatigue, normal appetite, no diaphoresis. Eyes: No pain, no discharge, no redness, no visual change, no foreign body. ENT: No pain, no bleeding, no congestion, no sore throat, no dysphagia, no discharge or rhinitis. Lymph: No adenopathy, no tender nodes, no lymphedema. Resp: No SOB, no cough, no sputum, no wheezing, no chest pain. CV: No chest pain, no palpitaions, no JACOBSON, no PND, no edema. GI: Normal appetite, no pain, no nausea, no vomiting, no diarrhea, no blood, no constipation. : No frequency, no urgency, no dysuria, no hematuria, no flank pain, no discharge, no bleeding. Musc: No bone/joint pain, no back pain, no neck pain, no knee pain, no restricted ROM. Skin: No rash, no skin lesions, no erythema, no laceration, no bruising, no pruritus. Neuro: No LINTON, no dizziness, no syncope, no seizure, no focal-weakness. Endo: No polyuria, no polydypsia, no dry-skin, no temp-intolerance. Psych: No hallucinations, no depression, no anxiety, no suicidal ideation. Ext: No edema, no pain, no ulcer, no weakness. Physical Exam Vital Signs Date Time Temp Pulse Resp B/P Pulse Ox O2 Delivery O2 Flow Rate FiO2 12/17/16 11:33 98.1 102 20 187/105 98 Room Air General Appearance: A [46 year-old female [who appears well-developed, well- nourished, in no acute distress. HEENT: Head normocephalic, atraumatic. Pupils equal, round, reactive to light and accommodate. Sclerae are no jaundice. Nasal turbinates pink without erythema or nasal discharge. Mucous membranes pink and moist without lesions. Oropharynx clear without any exudate or discharge. NECK: Supple. Trachea midline, No thyromegaly, No cervical lymphadenopathy, No mass, No carotid bruits, No JVD, Carotid pulses 2+ bilaterally. PULMONARY: Clear to auscultaion bilaterally, No retractions, Chest expansion symmetric bilaterally, no rales, no ronchi, no dulness on percussion. CARDIAC: Normal SI and S2, Regular rate and rythm, no murmur, gallop, or rub. GASTROINTESTINAL: Abdomen is soft, non-tender, Non Rigid, No distention, Positive bowel sounds x4 quadrants, Liver normal. SKIN: Warm, dry, no rash, no bruise, no echmosis. EXTREMITIES: Bilateral lower extremities normal, no edema, no phlabitus, pulse palpable, no contracture. MUSCULOSKELETAL: Spine Normal, Non-tender, Normal range of motion, No swelling, no deformity, no clubbing, or cyanosis, the patient has no edema to bilateral lower extremities, dorsalis pedis pulses palpable bilaterally. NEUROLOGIC: The patient is awake, alert, oriented, responding to yes/no questions appropriately, moving all extremities, cranial nerve intact, normal strenght, normal power, normal coordination, normal gait. Allergies Coded Allergies: No Known Allergy (Verified , 12/04/16) PMH No change Social Hx No change Family Hx No change Assessment/Plan Impression Hypertension poor control/diabetes poor control/diabetic neuropathy/ hypothyroidism/hyperlipidemia/depression Plan Patient education done again, explained about all the disease, and complication , family present, Patient still has no idea about diabetes, and blood pressure, difficult to get a compliance when patient does not understand anything, Patient explained that patient may need to go for diabetic education, and follow the instruction, Normal fruits in between and no food in between the regular meals, Will increase benazepril from 20 mg to 40 mg daily, will give a new prescription , #30 tablets Patient blood sugar is also significantly elevated, she did bring the blood sugar, still significantly elevated, will increase glyburide from 10 mg daily to 10 mg twice daily, Patient education doneabout hypoglycemia, Patient to take the blood pressure record and blood sugar record to primary care physician, check the blood sugar and blood pressure in 2 weeks, Patient very high risk for repeated admission, and complication, due to noncompliance and poor understanding, Patient advised to follow with the primary care physician in 2 weeks, Patient also ran out of Lipitor, will give a prescription of Lipitor 20 mg daily for 30 day supply, Medications Home Meds Active Scripts Ibuprofen* (Motrin*) 600 Mg Tab, 600 MG PO Q8, #30 TAB 0 Refills Prov:KATHY COOK PA-C 12/28/15 Reported Medications Sertraline Hcl* (Zoloft*) 100 Mg Tablet, 100 MG PO DAILY, #30 TAB 12/10/16 Sertraline Hcl* (Zoloft*) 50 Mg Tablet, 50 MG PO DAILY, #30 TAB 12/10/16 Levothyroxine Sodium* (Levothyroxine Sodium*) 175 Mcg Tablet, 175 MCG PO BEFORE BREAKFAST, #30 TAB 12/10/16 Aripiprazole* (Abilify*) 20 Mg Tablet, 20 MG PO DAILY, #30 TAB 12/10/16 Metformin* (Glucophage*) 500 Mg Tab, 1000 MG PO BID, TAB 02/03/15 Buspirone Hcl* (Buspar*) 5 Mg Tab, 5 MG PO BID, TAB 02/03/15 Atenolol* (Atenolol*) 50 Mg Tablet, 50 MG PO DAILY, TAB 02/03/15 Discontinued Reported Medications Levothyroxine Sodium* (Synthroid*) 25 Mcg Tablet, 25 MCG PO DAILY, TAB 02/03/15 Discontinued Scripts Ciprofloxacin Hcl* (Ciprofloxacin Hcl*) 500 Mg Tablet, 500 MG PO BID for 5 Days , TAB Prov:NEGIN MCKEON DO 02/26/16 Guaifenesin-Dextromethorphan* (Robitussin* DM) 100MG/10MG/5ML Syrup, 5 ML PO Q6H Y for COUGH, #120 ML 0 Refills Prov:KATHY COOK PA-C 12/28/15 Amoxicillin* (Amoxicillin*) 500 Mg Cap, 500 MG PO TID, #21 CAP 0 Refills Prov:KATHY COOK PA-C 12/28/15 Nitrofurantoin Monohyd Macrocr* (Macrobid*) 100 Mg Capsr, 100 MG PO BID, #14 CAP 0 Refills Prov:KATHY COOK PA-C 12/28/15 FIDELINA RODRIGUEZ MD Dec 17, 2016 12:26
== END 2016-12-17 17:05 | disposition home or self-care (01) ==
LOC: DCC 11:21
PROVIDERS: ATTEND Internal Medicine
DX: I10 Essential (primary) hypertension (principal); E11.40 Type 2 diabetes mellitus with diabetic neuropathy, unspecified; E11.65 Type 2 diabetes mellitus with hyperglycemia; E78.5 Hyperlipidemia, unspecified; F32.9 Major depressive disorder, single episode, unspecified
CPT/HCPCS: 82962; G0463